=== PATIENT | female | born 1970 | race Caucasian/White ===

== ENCOUNTER 2020-08-22 10:35 | Day surgery (SDC) | payer OTHER, BC ==
[~2020-08-22 10:35] MED LIST: AZIT250 PO; CAND32; CARV6.25; ESCI10; FURO20; METF500
== END 2020-08-22 23:01 | disposition home or self-care (01) ==
LOC: MOI MAM 10:35
DX: D05.11 Intraductal carcinoma in situ of right breast (principal)
CPT/HCPCS: 19081; 88305; 88342; 88360; A4648

== ENCOUNTER 2021-12-21 10:43 | Observation (INO) | payer SELFPAY ==
[~2021-12-21] VITALS: Ht 170.2 cm; Wt 125.0 kg
[~2021-12-21 10:43] MED LIST changes: +ALBU90OI; +AMLO5 PO; +BUPROPION HCL200 M2 PO; +CEPH500 PO; +LOSA50 PO; +METO25ER PO; +SERT50 PO; +SPIR25 PO
[2021-12-21 11:25] LABS: BASOPHILS ABSOLUTE AUTO 0.06 K/mm3 (0.00-0.23); BASOPHILS PERCENT AUTO 1 % (0-2); EOSINOPHILS ABSOLUTE AUTO 0.23 K/mm3 (0.00-0.68); EOSINOPHILS PERCENT AUTO 3 % (0-6); Hematocrit 38.4 % (33.0-51.0); IMMATURE GRAN ABSOLUTE AUTO 0.04 K/mm3 (0.00-0.10); IMMATURE GRAN PERCENT AUTO 1 % (0-1); LYMPHOCYTES ABSOLUTE AUTO 0.89 K/mm3 (0.84-5.20); LYMPHOCYTES PERCENT AUTO 12 % (21-46); MONOCYTES PERCENT AUTO 7 % (4-13); Mean Corpuscular HGB 27.8 pg (26.0-34.0); Mean Corpuscular HGB Conc 31.3 g/dL (31.5-36.5); Mean Corpuscular Volume 89 fL (80-100); Mean Platelet Volume 12.1 fL (9.1-12.4); NEUTROPHILS ABSOLUTE AUTO 5.85 K/mm3 (1.96-9.15); NEUTROPHILS PERCENT AUTO 77 % (41-73); Platelet Count 235 K/mm3 (150-400); RDW Coefficient Variation 13.9 % (11.7-14.2); RDW Standard Deviation 45.1 fL (35.1-46.3); Red Blood Cell Count 4.31 M/mm3 (3.80-5.20); White Blood Cell Count 7.57 K/mm3 (4.00-11.30)
[2021-12-21 11:31] LABS: Albumin, Blood 3.4 g/dL (3.4-5.0); Albumin/Globulin Ratio 0.9 (0.8-1.8); Bilirubin, Total 0.4 mg/dL (0.1-1.0); Bun/Creatinine Ratio 18.7 (12.0-20.0); Calcium, Blood 9.3 mg/dL (8.5-10.1); Creatinine, Blood 0.8 mg/dL (0.40-1.00); Globulin, Blood 3.9 g/dL (2.2-4.0); Potassium, Blood 4.5 mmol/L (3.5-5.5); Total Protein, Blood 7.3 g/dL (6.4-8.2)
[2021-12-21] MEDS ORDERED: Ventolin/Prove6.7 GM INH (12:51)
[2021-12-21] MEDS ORDERED: SERT100 PO (12:52)
[2021-12-21] MEDS ORDERED: METOPROLOL SUCC25 MG PO (12:52)
[2021-12-21] MEDS ORDERED: METFORMIN HCL500 M2 PO (12:52)
[2021-12-21] MEDS ORDERED: ANASTROZOLE1 M7 PO (12:53)
[2021-12-21] MEDS ORDERED: FUROSEMIDE20 MG PO (12:53)
[2021-12-21] MEDS ORDERED: AMLODIPINE BESYL5 MG PO (12:53)
[2021-12-21] MEDS ORDERED: SPIRONOLACTONE25 MG PO (12:53)
[2021-12-21] MEDS ORDERED: LOSA50 PO (12:54)
--- NOTE | 2021-12-21 16:38 | NUR ---
RECEIVED REPORT FROM PER DIEM INTERPRETERDWIGHT WHITNEY AROUND 151 REGARDING PATIENT ADMITTED TO MEDICAL UNIT WITH THE DIAGNOSIS OF ACUTE EXACERBATION OF CHF. PATIENT ARRIVED TO RM 343 AROUND 1525 VIA GURNEY. PATIENT TRANSFERRED TO BED INDEPENDENTLY. PATIENT IS A&OX4. PLEASANT AND COOPERATIVE WITH CARE. ORIENT TO ROOM AND CALL SYSTEM. AMBULATES TO BATHROOM INDEPENDENTLY. PATIENT ON O2 2L VIA NC. LUNGS CLEAR T/O. PATIENT DENIES SOB. PATIENT ON TELE, ATRIAL PACED AT 60'S PER SERVICENOW ADMINISTRATOR DEVELOPER AGUS VELA. PATIENT ADMISSION, ASSESSMENT AND MEDRIC DONE. IV SITE TO R AC 20G FLUSHED WITH 10 MLS OF NS NO REDNESS OR SWELLING AND NO LEAKAGE AROUND THE SITE. PATIENT SON AND DAUGHTER INLAW AT BEDSIDE VISITING. BED IN LOWEST POSITION, LOCKED AND CALL LIGHT IN REACH.
--- NOTE | 2021-12-22 03:00 | NUR ---
FARMWORKER DAIRY SUMMARY PT A/OX4; PLEASANT AND COOPERATIVE W/CARE AND INDEPENDENT IN THE ROOM. SPOUSE BROUGHT IN CPAP MACHING F/HOME; PT WORE T/O THE NIGHT. PT DECLINED PM DOSE OF [place]; STATED SHE HAD A MORNING DOSE AND ONLY TAKES ONE 50MG TAB A DAY; VERIFIED W/MED RECONCILLIATION. PT DENIES SOB AND STATES SHE IS FEELING CONSIDERABLY BETTER. ABLE TO ADVOCATE FOR NEEDS; CALL LIGHT IN REACH.
[2021-12-22 04:51] LABS: BASOPHILS ABSOLUTE AUTO 0.06 K/mm3 (0.00-0.23); BASOPHILS PERCENT AUTO 1 % (0-2); EOSINOPHILS ABSOLUTE AUTO 0.32 K/mm3 (0.00-0.68); EOSINOPHILS PERCENT AUTO 4 % (0-6); Hematocrit 37.1 % (33.0-51.0); Hemoglobin 11.8 g/dL (11.5-16.0); IMMATURE GRAN ABSOLUTE AUTO 0.03 K/mm3 (0.00-0.10); IMMATURE GRAN PERCENT AUTO 0 % (0-1); LYMPHOCYTES PERCENT AUTO 15 % (21-46); MONOCYTES ABSOLUTE AUTO 0.62 K/mm3 (0.16-1.47); MONOCYTES PERCENT AUTO 8 % (4-13); Mean Corpuscular HGB Conc 31.8 g/dL (31.5-36.5); Mean Corpuscular Volume 88 fL (80-100); Mean Platelet Volume 11.8 fL (9.1-12.4); NEUTROPHILS ABSOLUTE AUTO 5.79 K/mm3 (1.96-9.15); NEUTROPHILS PERCENT AUTO 72 % (41-73); Platelet Count 226 K/mm3 (150-400); RDW Coefficient Variation 13.9 % (11.7-14.2); RDW Standard Deviation 44.5 fL (35.1-46.3); Red Blood Cell Count 4.21 M/mm3 (3.80-5.20); White Blood Cell Count 8.02 K/mm3 (4.00-11.30)
[2021-12-22 05:08] LABS: Bun/Creatinine Ratio 21.2 (12.0-20.0); Calcium, Blood 9.2 mg/dL (8.5-10.1); Creatinine, Blood 0.76 mg/dL (0.40-1.00); Magnesium, Blood 2.1 mg/dL (1.6-2.4); Potassium, Blood 3.8 mmol/L (3.5-5.5)
--- NOTE | 2021-12-22 17:12 | NUR ---
DISCHARGE PT DISCHARGED TO HOME. THIS RN EXPLAINED DISCHARGE INSTRUCTIONS AND MEDICATIONS TO PT AND SHE REPORTS SHE UNDERSTANDS. EDUCATED PT ON SALT INTAKE AND DAILY WEIGHING SELF. EDUCATIONAL INFORMATION GIVEN. IV REMOVED WITH CATHETER INTACT. PT INDEPENDENT TO PRIVATE VEHICLE. BELONGINGS WITH PT.
== END 2021-12-22 15:56 | disposition home or self-care (01) ==
LOC: ER 10:43 → MEDS 10:44
PROVIDERS: Physician Assistant; ADMIT Internal Medicine
DX: I11.0 Hypertensive heart disease with heart failure (principal); I50.43 Acute on chronic combined systolic (congestive) and diastolic (congestive) heart failure; J96.01 Acute respiratory failure with hypoxia; I24.8 Other forms of acute ischemic heart disease; Z85.3 Personal history of malignant neoplasm of breast; E78.5 Hyperlipidemia, unspecified; Z87.891 Personal history of nicotine dependence; I25.2 Old myocardial infarction; F32.A Depression, unspecified
CPT/HCPCS: 36415; 71046; 80048; 80053; 83690; 83735; 83880; 84484; 85025; 93005; 93010; 96372; 96376; A9270; G0378; J1650; J1940

== ENCOUNTER 2022-10-13 07:41 | Day surgery (SDC) | payer BC | END 2022-10-13 15:30 | disposition home or self-care (01) | LOC: MHTC 07:41 | DX: I42.0 Dilated cardiomyopathy (principal); E11.9 Type 2 diabetes mellitus without complications; Z87.891 Personal history of nicotine dependence; I42.8 Other cardiomyopathies; I11.9 Hypertensive heart disease without heart failure; I25.10 Atherosclerotic heart disease of native coronary artery without angina pectoris; I27.22 Pulmonary hypertension due to left heart disease ==

== ENCOUNTER 2023-02-10 10:19 | Inpatient (IN) | payer BC ==
[~2023-02-10] VITALS: Ht 170.2 cm; Wt 134.5 kg
[~2023-02-10 10:19] MED LIST changes: +ALBU90OI INH; +AMLODIPINE BESYL5 MG PO; +ANASTROZOLE1 M7 PO; +FURO40 PO; +FUROSEMIDE20 MG PO; +KAPSPARGO SPRIN50 MG PO; +METF500 PO; +METFORMIN HCL500 M2 PO; +METOPROLOL SUCC25 MG PO; +SERT100 PO; +SPIRONOLACTONE25 MG PO; +Ventolin/Prove6.7 GM INH
[2023-02-10] MEDS ORDERED: TORSE20 PO (10:41)
[2023-02-10 11:10] LABS: BASOPHILS ABSOLUTE AUTO 0.06 K/mm3 (0.00-0.23); BASOPHILS PERCENT AUTO 1 % (0-2); EOSINOPHILS PERCENT AUTO 1 % (0-6); Hematocrit 32.7 % (33.0-51.0); Hemoglobin 10.5 g/dL (11.5-16.0); IMMATURE GRAN ABSOLUTE AUTO 0.06 K/mm3 (0.00-0.10); IMMATURE GRAN PERCENT AUTO 1 % (0-1); LYMPHOCYTES ABSOLUTE AUTO 0.66 K/mm3 (0.84-5.20); LYMPHOCYTES PERCENT AUTO 7 % (21-46); MONOCYTES ABSOLUTE AUTO 0.69 K/mm3 (0.16-1.47); MONOCYTES PERCENT AUTO 8 % (4-13); Mean Corpuscular HGB 27.9 pg (26.0-34.0); Mean Corpuscular HGB Conc 32.1 g/dL (31.5-36.5); Mean Corpuscular Volume 87 fL (80-100); NEUTROPHILS ABSOLUTE AUTO 7.55 K/mm3 (1.96-9.15); NEUTROPHILS PERCENT AUTO 83 % (41-73); NRBC ABSOLUTE 0.02 K/mm3 (0.00-0.02); NRBC Auto 0.2 /100 WBC (0.0-0.2); Platelet Count 220 K/mm3 (150-400); RDW Standard Deviation 46.9 fL (35.1-46.3); Red Blood Cell Count 3.76 M/mm3 (3.80-5.20); White Blood Cell Count 9.12 K/mm3 (4.00-11.30)
[2023-02-10 11:27] LABS: Albumin, Blood 3.6 g/dL (3.4-5.0); Bilirubin, Total 1.1 mg/dL (0.1-1.0); Calcium, Blood 8.4 mg/dL (8.5-10.1); Creatinine, Blood 0.89 mg/dL (0.40-1.00); Globulin, Blood 3.7 g/dL (2.2-4.0); Potassium, Blood 3.4 mmol/L (3.5-5.5); Total Protein, Blood 7.3 g/dL (6.4-8.2)
[2023-02-10 11:50] LABS: Influenza A, PCR NEGATIVE (NEGATIVE); Influenza B, PCR NEGATIVE (NEGATIVE); Resp Syncytial Virus, PCR NEGATIVE (NEGATIVE); SARS-Cov-2 (COVID-19) PCR, MMC NEGATIVE (NEGATIVE)
[2023-02-10 15:07] LABS: Free Thyroxine 1.16 ng/dL (0.70-1.60); Thyroid Stimulating Hormone 2.31 uIU/mL (0.360-4.800)
[2023-02-10] MEDS ORDERED: METO50ER PO (15:28)
[2023-02-10] MEDS ORDERED: ENTRESTO 49 MG1 EAC2 PO (15:28)
[2023-02-10] MEDS ORDERED: METF500 PO (15:36)
[2023-02-10] MEDS ORDERED: LOSARTAN POTAS100 M1 PO (15:36)
[2023-02-10 15:43] VITALS: BP 139/86
--- NOTE | 2023-02-10 18:07 | NUR ---
SHIFT SUMMARY PT A&OX4, VSS, AMB IND, TOLERATING PO, VOIDING, AND DENIES PAIN. PT ON TELE, APACED W/ OCCASSIONAL PVC'S, AND NO EVENTS THIS SHIFT. PT ADMITS TO OCCASSIONAL SOB W/ OUT NEED OF O2. DIURETICS GIVEN PER ORDERS. CALL LIGHT WITHIN REACH AND PT ABLE TO MAKE NEEDS KNOWN.
[2023-02-10 19:28] VITALS: BP 125/73
[2023-02-11 02:26] VITALS: BP 145/89
--- NOTE | 2023-02-11 05:15 | NUR ---
SUMMARY: PT A/OX4, INDPENDENT IN ROOM AND CALLS APPROPRIATELY TO SPECIFY NEEDS. SHE BECOMES SLIGHTLY SOB W/EXERTION BUT IS ASYMPTOMATIC OF RESP DISTRESS AT REST. OCC EXP WHEEZE OBSERVED AND RT PROVIDES INHALER PRN PER EMAR. SHE WORE HER HOME CPAP T/O NOCTE W/CONT BIOX INTACT, SPO2 88-92%.PT NSR AT 60'S-70'S BPM. NO ACUTE CHANGES, VSS/AFEBRILE. WCTM AND REPORT TO DAY RN.
[2023-02-11 05:40] LABS: BASOPHILS ABSOLUTE AUTO 0.05 K/mm3 (0.00-0.23); BASOPHILS PERCENT AUTO 1 % (0-2); EOSINOPHILS ABSOLUTE AUTO 0.12 K/mm3 (0.00-0.68); EOSINOPHILS PERCENT AUTO 1 % (0-6); Hemoglobin 9.8 g/dL (11.5-16.0); IMMATURE GRAN ABSOLUTE AUTO 0.06 K/mm3 (0.00-0.10); IMMATURE GRAN PERCENT AUTO 1 % (0-1); LYMPHOCYTES ABSOLUTE AUTO 1.01 K/mm3 (0.84-5.20); LYMPHOCYTES PERCENT AUTO 11 % (21-46); MONOCYTES ABSOLUTE AUTO 0.77 K/mm3 (0.16-1.47); MONOCYTES PERCENT AUTO 8 % (4-13); Mean Corpuscular HGB 28.7 pg (26.0-34.0); Mean Corpuscular HGB Conc 32.7 g/dL (31.5-36.5); Mean Corpuscular Volume 88 fL (80-100); Mean Platelet Volume 12.4 fL (9.1-12.4); NEUTROPHILS ABSOLUTE AUTO 7.61 K/mm3 (1.96-9.15); NEUTROPHILS PERCENT AUTO 79 % (41-73); NRBC ABSOLUTE 0.02 K/mm3 (0.00-0.02); NRBC Auto 0.2 /100 WBC (0.0-0.2); Platelet Count 187 K/mm3 (150-400); RDW Coefficient Variation 15.3 % (11.7-14.2); RDW Standard Deviation 48.2 fL (35.1-46.3); Red Blood Cell Count 3.41 M/mm3 (3.80-5.20); White Blood Cell Count 9.62 K/mm3 (4.00-11.30)
[2023-02-11 06:29] LABS: Bun/Creatinine Ratio 24.1 (12.0-20.0); Creatinine, Blood 0.95 mg/dL (0.40-1.00)
[2023-02-11 07:36] VITALS: BP 154/99
[2023-02-11 10:42] LABS: Percent Saturation 11.3 % (15.0-50.0)
[2023-02-11 13:34] VITALS: BP 112/72
[2023-02-11 15:30] VITALS: BP 146/78
--- NOTE | 2023-02-11 18:39 | NUR ---
PT IS ALERT AND ORIENTED X4. ABLE TO MAKE NEEDS KNOWN. INDEPENDENT IN ROOM. CPAP AT NIGHT. SAT >90%. NO ACUTE CHANGES THIS SHIFT. SOME CHANGES IN MEDICATIONS. PLAN TO STAY OVER NIGHT TO MONITOR LABS IN AM. IRON INFUSED TODAY. PT TOLORATED WELL.
[2023-02-11 19:46] VITALS: BP 122/51
[2023-02-12 03:42] VITALS: BP 127/86
--- NOTE | 2023-02-12 04:47 | NUR ---
SHIFT SUMMARY PATIENT HAD NO ACUTE CHANGES. AXOX 4 AND INDEPENDENT IN ROOM. VSS/AFEBRILE. DENIES CHEST PAIN, SOB, AND N/V. ON CPAP AT NIGHT. CBG 107 AND REPORTS NOT A DIABETIC. TELE MONITOR PACED 84. SLEPT MOST OF THE SHIFT. CALL LIGHT IN REACH. BED IN LOWEST POSITION. WILL CONTINUE TO MONITOR UNTIL DAY SHIFT NURSE ASSUMES CARE.
[2023-02-12 05:23] LABS: Bun/Creatinine Ratio 23.5 (12.0-20.0); Calcium, Blood 8.5 mg/dL (8.5-10.1); Creatinine, Blood 0.94 mg/dL (0.40-1.00); Potassium, Blood 3.1 mmol/L (3.5-5.5)
[2023-02-12 07:42] VITALS: BP 153/94
[2023-02-12] MEDS ORDERED: JARDIANCE10 MG PO (11:04)
--- NOTE | 2023-02-12 15:19 | NUR ---
PT DISCHARGED HOME. DISCHARGE INSTRUCTIONS DISCUSSED WITH PT. SPOUSE AT BEDSIDE. R/A. PT TO FOLLOW UP WITH CARDIOLOGY. EMPHASIZED IMPORTANCE OF FOLLOW UP APPOINTMENTS AND LAB WORK. RECOMMENDED LOW SODIUM DIET. NO QUESTION OR CONCERNS AT THIS TIME.
== END 2023-02-12 12:17 | disposition home or self-care (01) | DRG 291 ==
LOC: ER 10:19 → MEDS 10:20
PROVIDERS: Emergency Medicine; ADMIT Internal Medicine
DX: I11.0 Hypertensive heart disease with heart failure (principal); I50.43 Acute on chronic combined systolic (congestive) and diastolic (congestive) heart failure; J96.01 Acute respiratory failure with hypoxia; I42.8 Other cardiomyopathies; F41.9 Anxiety disorder, unspecified; F32.A Depression, unspecified; E78.5 Hyperlipidemia, unspecified; G47.30 Sleep apnea, unspecified; J45.909 Unspecified asthma, uncomplicated; M10.9 Gout, unspecified; E11.9 Type 2 diabetes mellitus without complications; D50.9 Iron deficiency anemia, unspecified; E87.6 Hypokalemia; Z95.810 Presence of automatic (implantable) cardiac defibrillator; Z98.890 Other specified postprocedural states; Z90.710 Acquired absence of both cervix and uterus; Z85.3 Personal history of malignant neoplasm of breast; Z85.43 Personal history of malignant neoplasm of ovary; Z79.899 Other long term (current) drug therapy; Z79.01 Long term (current) use of anticoagulants; Z79.51 Long term (current) use of inhaled steroids; Z79.84 Long term (current) use of oral hypoglycemic drugs; Z87.891 Personal history of nicotine dependence; Z99.89 Dependence on other enabling machines and devices
CPT/HCPCS: 0241U; 36415; 71046; 80048; 80053; 82728; 82947; 83540; 83550; 83735; 83880; 84439; 84443; 84484; 85025; 93005; 93010; 94640; 94660; 94664; 94762; 99285-25; A9270; J1650; J1750; J1940; J7050